=== PATIENT | male | born 1970 | race Caucasian/White ===

== ENCOUNTER 2025-10-23 17:56 | Emergency (ER) | payer MEDICAID, SELFPAY ==
[2025-10-23 17:58] VITALS: BP 123/80; PULSE 105; RESP 18; TEMP 36.9; O2SAT 95
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
== END 2025-10-23 19:49 | disposition home or self-care (01) ==
PROVIDERS: Emergency Provider Nurse Practitioner Family
DX: Z59.02 Unsheltered homelessness (principal); F10.20 Alcohol dependence, uncomplicated; Z63.0 Problems in relationship with spouse or partner
CPT/HCPCS: 99282